=== PATIENT | female | born 1990 | race Caucasian/White ===

== ENCOUNTER → 2016-10-28 | Outpatient (CLI) | payer OTHER ==
[~2016-10-28] MED LIST: NS 100 ML IV 100 ML IV ONE
--- NOTE | 2016-10-28 11:41 | CT ---
CT abdomen and pelvis with [place] Indication: History of prior umbilical hernia repair February 2016 with concern for opening of the s urgical incision site with oozing fluid. Technique: Helical CT images of the abdomen and pelvic were obtained with IV contrast. Reformatted i mages in the coronal and sagittal planes were also generated for review. Comparison: None Findings: The visualized lung bases are clear. No aggressive osseous lesions are identified. There is a tiny, fat containing umbilical hernia with mild subjacent fat stranding. There is a thin, peripherally enhancing collection which extends cranially within the peritoneal cavity from the umb ilicus to the inferior margin of left hepatic lobe. The collection measures approximately 0.5 x 4.2 x 3.5 cm in maximum AP by transverse by CC dimension. No gas within the collection is iden tified. The gallbladder is surgically absent. Mild intrahepatic biliary dilatation is likely related to post cholecystectomy state. The liver, spleen, pancreas, adrenals, kidneys, GI tract including the appen shaw, IVC, abdominal aorta, and urinary bladder are unremarkable. The uterus is present. There is tra ce free fluid within the lower pelvis, likely physiologic. No free air, significant ascites or lymph adenopathy is identified. Impression: Tiny fat containing umbilical hernia with mild subjacent inflammatory stranding and thin, peripheral ly enhancing intraperitoneal fluid collection, extending from the umbilicus as detailed above. Findi ngs could reflect a small postoperative seroma, although developing abscess cannot be excluded and c linical correlation is necessary. Reported By:
== END ==
LOC: RAD 08:39
PROVIDERS: ATTEND Internal Medicine
DX: R10.84 Generalized abdominal pain (principal); Z98.890 Other specified postprocedural states
CPT/HCPCS: 74177; A4222